=== PATIENT | female | born 1950 | race Caucasian/White ===

== ENCOUNTER 2020-05-01 04:16 | Day surgery (SDC) | payer OTHER, BC ==
[2020-04-26 16:50] VITALS: BMI 30.2
[2020-05-01 08:24] VITALS: TEMP 97.7
[2020-05-01 11:21] VITALS: BP 146/73; PULSE 57
== END 2020-05-01 09:52 | disposition home or self-care (01) ==
LOC: JASU-ENDO 04:16
PROVIDERS: ATTEND Internal Medicine Gastroenterology
PROC: 0DJD8ZZ Inspection of Lower Intestinal Tract, Via Natural or Artificial Opening Endoscopic (ICD-10-PCS; principal; 2020-05-01 07:58)
DX: Z12.11 Encounter for screening for malignant neoplasm of colon (principal); Z86.010 Personal history of colon polyps